=== PATIENT | female | born 1970 | race Caucasian/White ===

== ENCOUNTER 2020-01-04 22:38 | Emergency (ER) | payer OTHER ==
[~2020-01-04] VITALS: Ht 182.9 cm; Wt 81.6 kg
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
[2020-01-04] MEDS ORDERED: HYDROCODONE/APAP 5/325MG TABLET ONE (23:49)
[2020-01-05] MEDS ORDERED: HYDROCODONE/APAP 5/325MG TABLET PO ONE
--- NOTE | 2020-01-05 00:06 | NUR ---
BROUGHT BY RADIOLOGY TO CT
--- NOTE | 2020-01-05 00:25 | NUR ---
PT RETURNED FROM CT
--- NOTE | 2020-01-05 01:05 | NUR ---
Patient discharged to home in stable condition. Written and verbal after care instructions given. Patient verbalizes understanding of instruction.Pt ambulatory with a steady gait
[2020-01-05 01:47] VITALS: BP 119/73
== END 2020-01-05 01:47 | disposition home or self-care (01) ==
LOC: ER 22:48
DX: S00.83XA Contusion of other part of head, initial encounter (principal); R51.9 Headache, unspecified; M54.2 Cervicalgia; V49.49XA Driver injured in collision with other motor vehicles in traffic accident, initial encounter; Y93.89 Activity, other specified; Y92.488 Other paved roadways as the place of occurrence of the external cause; Y99.8 Other external cause status
CPT/HCPCS: 70450; 72125; 99285; L0172

== ENCOUNTER 2020-01-07 18:53 | Emergency (ER) | payer OTHER ==
[~2020-01-07] VITALS: Ht 182.9 cm; Wt 81.6 kg
[2020-01-07 19:00] VITALS: BP 127/82
--- NOTE | 2020-01-07 19:10 | NUR ---
x ray at bed side
[2020-01-07] MEDS ORDERED: TDAP [DIPH/PERTUSSIS/TET] 0.5 ML VIAL IM ONE ×2 (20:00→20:10)
[2020-01-07] MEDS ORDERED: CEPHALEXIN MONOHYDRATE 500 MG CAPSULE PO ONE ×2 (20:09→20:30)
--- NOTE | 2020-01-07 20:22 | NUR ---
PT IS MEDICALLY STABLE FOR D/C. Patient discharged to home in stable condition. Rx and Written and verbal after care instructions given. Patient verbalizes understanding of instruction.
== END 2020-01-07 20:23 | disposition home or self-care (01) ==
LOC: ER 18:58
DX: S90.852A Superficial foreign body, left foot, initial encounter (principal); W45.8XXA Other foreign body or object entering through skin, initial encounter; Y93.89 Activity, other specified; Y92.89 Other specified places as the place of occurrence of the external cause; Y99.8 Other external cause status
CPT/HCPCS: 73630-TC; 90715

== ENCOUNTER 2022-06-17 11:51 | Emergency (ER) | payer OTHER ==
[~2022-06-17] VITALS: Ht 182.9 cm; Wt 92.1 kg
--- NOTE | 2022-06-17 12:00 | NUR ---
WALKED INTO ER C/O NON RADIATING SUBSTERNAL CHEST PAIN X 1 WEEK. PT DENIES ANY NAUSEA OR VOMITING. PT PLACED IN BED, CONNECTED TO MONITOR, VSS, AOX4 AWAITING MD KHAN.
--- NOTE | 2022-06-17 12:16 | NUR ---
VP CLINICAL AT BEDSIDE FOR BLOOD DRAW.
--- NOTE | 2022-06-17 12:16 | NUR ---
URINE SAMPLE COLLECTED AND SENT TO LAB.
--- NOTE | 2022-06-17 12:17 | NUR ---
PT REFUSED IV INSERTION AT THIS TIME.
[2022-06-17 12:18] LABS: BASOPHILS # (AUTO) 0.1 K/uL (0.0-0.2); EOSINOPHILS % (AUTO) 2.6 % (0.0-6.0); HEMATOCRIT 43 % (33-45); HEMOGLOBIN 14.5 g/dL (11.5-14.8); LYMPHOCYTES # (AUTO) 1.5 K/uL (0.8-4.8); LYMPHOCYTES % (AUTO) 29.8 % (20.0-44.0); MEAN CORPUSCULAR HGB CONC 34 g/dl (31.0-36.0); MEAN CORPUSCULAR VOLUME 93 fL (82-100); MONOCYTES # (AUTO) 0.5 K/uL (0.1-1.30); NEUTROPHILS # (AUTO) 2.9 K/uL (1.8-8.9); NEUTROPHILS % (AUTO) 56.6 % (43.0-81.0); PLATELET COUNT (AUTO) 305 K/uL (150-450); RED BLOOD CELL COUNT(AUTO) 4.56 MIL/uL (4.0-5.2); WHITE BLOOD COUNT (AUTO) 5.1 K/uL (4.3-11.0)
--- NOTE | 2022-06-17 12:21 | NUR ---
XRAY AT BEDSIDE
[2022-06-17 12:31] LABS: CALCIUM, SERUM 8.8 mg/dL (8.5-10.1); CARBON DIOXIDE 32 mmol/L (21-32); CHLORIDE 103 mmol/L (98-107); CREATININE 1.2 mg/dL (0.6-1.3); GLUCOSE 80 mg/dL (74-106); SODIUM SERUM 137 mmol/L (136-145); UREA NITROGEN, BLOOD 14 mg/dL (7-18)
--- NOTE | 2022-06-17 16:08 | NUR ---
Patient discharged to home in stable condition. Written and verbal after care instructions given. Patient verbalizes understanding of instruction.
[2022-06-17 16:16] VITALS: BP 122/74
== END 2022-06-17 16:17 | disposition home or self-care (01) ==
LOC: ER 12:04
DX: R07.89 Other chest pain (principal); E03.9 Hypothyroidism, unspecified
CPT/HCPCS: 36415; 71045-TC; 80048-TC; 84484-TC; 85025-TC

== ENCOUNTER 2023-05-25 18:39 | Emergency (ER) | payer OTHER ==
[~2023-05-25] VITALS: Ht 182.9 cm; Wt 81.6 kg
[2023-05-25] MEDS ORDERED: IBUPROFEN 400 MG TABLET ONE (20:52)
[2023-05-25] MEDS: IBUPROFEN 400 MG TABLET PO ONE (20:56)
[2023-05-25] MEDS ORDERED: ACET-2605 PO (22:04)
[2023-05-25] MEDS ORDERED: IBUP-1955 PO (22:04)
[2023-05-25 22:39] VITALS: BP 109/80; TEMP 98.1; O2SAT 99
== END 2023-05-25 22:39 | disposition home or self-care (01) ==
LOC: ER 18:47
DX: M25.561 Pain in right knee (principal); Z91.018 Allergy to other foods
CPT/HCPCS: 73564-TC